=== PATIENT | female | born 1965 | race Caucasian/White ===

== ENCOUNTER 2022-05-17 20:59 | Emergency (ER) | payer SELFPAY ==
[~2022-05-17] VITALS: Ht 162.6 cm; Wt 70.3 kg
[2022-05-17 21:04] VITALS: BP 140/85
--- NOTE | 2022-05-17 21:07 | NUR ---
TO LOBBY A/W BED AMBULATORY
--- NOTE | 2022-05-17 21:14 | NUR ---
PT TO BED 4
--- NOTE | 2022-05-17 21:17 | NUR ---
PT AMBULATED TO RR
--- NOTE | 2022-05-17 21:51 | NUR ---
Patient sitting on bed, A/Ox4, chest rise and fall symmetrical, no s/s of distress
--- NOTE | 2022-05-17 22:30 | NUR ---
Dr. Allison examining patient.
[2022-05-17] MEDS ORDERED: MECLIZINE 25 MG TAB PO ONE (22:40)
[2022-05-17 22:53] LABS: BASOPHILS % (AUTO) 0.5 % (0.0-2.0); EOSINOPHILS % (AUTO) 0.5 % (0.0-4.0); HEMATOCRIT 38.9 % (36-48); HEMOGLOBIN 13.2 g/dL (12.0-16.0); LYMPHOCYTES # (AUTO) 1.8 K/uL (2.5-16.5); LYMPHOCYTES % (AUTO) 26.3 % (20.5-51.1); MEAN CORPUSCULAR HEMOGLOBIN 30 pg (27-31); MEAN CORPUSCULAR HGB CONC 34 g/dL (33-37); MEAN CORPUSCULAR VOLUME 89.8 fL (80-94); MONOCYTES # (AUTO) 0.6 K/uL (0.8-1.0); NEUTROPHILS # (AUTO) 4.5 K/uL (1.8-7.7); NEUTROPHILS % (AUTO) 64.7 % (42.2-75.2); PLATELET COUNT (AUTO) 242 K/uL (140-450); RED BLOOD CELL COUNT(AUTO) 4.33 MIL/uL (4.20-5.40); RED CELL DISTRIBUTION WIDTH 13.8 % (11.6-13.7); WHITE BLOOD COUNT (AUTO) 6.9 K/uL (4.8-10.8)
--- NOTE | 2022-05-17 23:08 | NUR ---
Ultrasound at bedside.
[2022-05-17 23:13] LABS: ALBUMIN 3.3 g/dL (3.4-5.0); ANION GAP 9.9 (8-16); CARBON DIOXIDE 30.8 mmol/L (21-32); CREATININE 0.6 mg/dL (0.6-1.3); POTASSIUM 3.7 mmol/L (3.5-5.1); TOTAL BILIRUBIN 0.4 mg/dL (0.0-1.0)
--- NOTE | 2022-05-17 23:45 | NUR ---
PT TAKEN TO CT
--- NOTE | 2022-05-17 23:45 | NUR ---
Patient sitting on bed, A/Ox4, chest rise and fall symmetrical, no s/s of distress
--- NOTE | 2022-05-17 23:58 | NUR ---
PT RETURN FROM CT
[2022-05-18] MEDS ORDERED: ACETAMINOPHEN 325 MG TAB PO ONE (00:35)
--- NOTE | 2022-05-18 01:16 | NUR ---
Dr. Allison examining patient.
--- NOTE | 2022-05-18 01:30 | NUR ---
Patient sitting on bed, A/Ox4, chest rise and fall symmetrical, no s/s of distress
[2022-05-18] MEDS ORDERED: APIX5TAB PO (02:24)
[2022-05-18 02:37] VITALS: BP 129/78
== END 2022-05-18 02:38 | disposition home or self-care (01) ==
LOC: MED 20:59
DX: I82.4Z2 Acute embolism and thrombosis of unspecified deep veins of left distal lower extremity (principal); R42 Dizziness and giddiness; Z79.899 Other long term (current) drug therapy
CPT/HCPCS: 36415; 71275; 80053; 81002; 81025; 83880; 84484; 85025; 85379; 93005; 93971; 99285; J8597; Q0092; Q9967